=== PATIENT | female | born 1955 | race Caucasian/White ===

== ENCOUNTER 2017-09-29 06:17 | Emergency (ER) | payer MEDICARE, OTHER ==
[2017-09-29] MEDS: ALBUTEROL 0.083% (NEB) 2.5 MG/3 ML AMP NEB (07:23)
[2017-09-29] MEDS: IPRATROPIUM (NEB) 0.5 MG/2.5 ML AMP NEB (07:24)
== END 2017-09-29 08:46 | disposition home or self-care (01) ==
LOC: FTE 06:17
DX: R05 Cough (principal); J45.909 Unspecified asthma, uncomplicated; I10 Essential (primary) hypertension; E11.9 Type 2 diabetes mellitus without complications; Z79.4 Long term (current) use of insulin; Z87.891 Personal history of nicotine dependence
CPT/HCPCS: 71045; 94664; 99284-25

== ENCOUNTER 2018-07-24 05:50 | Emergency (ER) | payer MEDICARE, OTHER ==
[2018-07-24] MEDS: predniSONE 20 MG TAB PO (06:45)
[2018-07-24] MEDS: FAMOTIDINE 20 MG TAB PO (06:45)
== END 2018-07-24 07:02 | disposition home or self-care (01) ==
LOC: FTE 05:50
DX: L50.9 Urticaria, unspecified (principal); I10 Essential (primary) hypertension; E11.9 Type 2 diabetes mellitus without complications; Z87.891 Personal history of nicotine dependence; Z79.4 Long term (current) use of insulin
CPT/HCPCS: 99283